=== PATIENT | male | born 1965 | race Caucasian/White ===

== ENCOUNTER 2019-06-12 13:39 | Outpatient (CLI) | payer OTHER, SELFPAY | END 2019-06-12 13:40 | disposition home or self-care (01) | LOC: ANHAUDIO 13:40 | PROVIDERS: PCP Family Medicine; Visit Provider Nurse Practitioner Family | DX: H91.90 Unspecified hearing loss, unspecified ear (principal); H61.22 Impacted cerumen, left ear | CPT/HCPCS: 99199 ==

== ENCOUNTER 2019-06-29 13:17 | Outpatient (CLI) | payer OTHER, SELFPAY | END 2019-06-29 13:18 | disposition home or self-care (01) | LOC: ANHAUDIO 13:22 | PROVIDERS: PCP Family Medicine; Visit Provider Family Medicine | DX: H90.A32 Mixed conductive and sensorineural hearing loss, unilateral, left ear with restricted hearing on the contralateral side (principal); H90.A21 Sensorineural hearing loss, unilateral, right ear, with restricted hearing on the contralateral side | CPT/HCPCS: 92557; 92567 ==